=== PATIENT | female | born 1950 | race Two or more races ===

== ENCOUNTER 2022-09-30 01:41 | Emergency (ER) | payer MEDICARE, BC ==
[~2022-09-30] VITALS: Ht 162.6 cm; Wt 63.5 kg
--- NOTE | 2022-09-30 01:59 | NUR ---
[id number] FR HOME W/ CC OF RT SCAPULAR PAIN RAD TO CHEST. HX HIGH CHOLESTEROL, OVARIAN CA (LAST CHEMO 4 WEEKS AGO). PT PLACED IN BED, VITALS CHECKED.
[2022-09-30] MEDS ORDERED: NITROGLYCERIN 0.4 MG/TAB BOTTLE SL ONE (02:30)
[2022-09-30] MEDS ORDERED: NITROGLYCERIN PACKET 1 GM PACKET TD ONE (02:30)
[2022-09-30] MEDS ORDERED: ASPIRIN 81 MG TAB.CHEW PO ONE (02:30)
--- NOTE | 2022-09-30 02:35 | NUR ---
20GA TO LEFT WRIST ESTABLISHED; BLOOD WORK COLLECTED AND GIVEN TO ASSISTANT TECHNICIAN AT BEDSIDE
[2022-09-30 02:47] LABS: BASOPHILS % (AUTO) 0.9 % (0.0-2.0); EOSINOPHILS % (AUTO) 1.1 % (0.0-6.0); HEMATOCRIT 29 % (33-45); HEMOGLOBIN 9.8 g/dL (11.5-14.8); LYMPHOCYTES # (AUTO) 1.7 K/uL (0.8-4.8); LYMPHOCYTES % (AUTO) 45.2 % (20.0-44.0); MEAN CORPUSCULAR HGB CONC 34 g/dl (31.0-36.0); MEAN CORPUSCULAR VOLUME 95 fL (82-100); MONOCYTES # (AUTO) 0.5 K/uL (0.1-1.30); MONOCYTES % (AUTO) 13.4 % (2.0-12.0); NEUTROPHILS # (AUTO) 1.5 K/uL (1.8-8.9); NEUTROPHILS % (AUTO) 39.4 % (43.0-81.0); PLATELET COUNT (AUTO) 191 K/uL (150-450); RED BLOOD CELL COUNT(AUTO) 3.06 MIL/uL (4.0-5.2); WHITE BLOOD COUNT (AUTO) 3.8 K/uL (4.3-11.0)
[2022-09-30] MEDS ORDERED: NITROGLYCERIN PACKET 1 GM PACKET ONE (02:48)
[2022-09-30] MEDS ORDERED: NITROGLYCERIN 0.4 MG/TAB BOTTLE ONE (02:48)
[2022-09-30] MEDS ORDERED: ASPIRIN 81 MG TAB.CHEW ONE (02:49)
--- NOTE | 2022-09-30 02:55 | NUR ---
PT REFUSED NITRO PASTE AND NITRO SL. PT DID TAKE ASA 162MG. STATED SHE WOULD LIKE TO LEAVE SHE FEELS BETTER NOW. WILL LET MD AWARE.
[2022-09-30 02:56] LABS: CALCIUM, SERUM 9.2 mg/dL (8.5-10.1); CARBON DIOXIDE 29 mmol/L (21-32); CHLORIDE 105 mmol/L (98-107); CREATININE 0.6 mg/dL (0.6-1.3); GLUCOSE 102 mg/dL (74-106); POTASSIUM 3.9 mmol/L (3.5-5.1); SODIUM SERUM 139 mmol/L (136-145); UREA NITROGEN, BLOOD 23 mg/dL (7-18)
[2022-09-30 02:59] LABS: D-DIMER 0.71 mg/L(FEU (0.17-0.50)
[2022-09-30 03:10] LABS: ALANINE AMINOTRANSFERASE 22 U/L (12-78); ALBUMIN 3.4 g/dL (3.4-5.0); ALKALINE PHOSPHATASE 80 U/L (46-116); ASPARTATE AMINOTRANSFERASE 17 U/L (15-37); BILIRUBIN,DIRECT 0.1 mg/dL (0.0-0.2); BILIRUBIN,TOTAL 0.3 mg/dL (0.2-1.0); TOTAL PROTEIN, SERUM 6.4 g/dL (6.4-8.2)
[2022-09-30] MEDS ORDERED: IOHEXOL-350 100 ML VIAL IV ONE (03:14)
[2022-09-30] MEDS ORDERED: CT SWABBABLE VALVE TRANS SET 1 EA INFUS.SET MC ONE (03:15)
[2022-09-30] MEDS ORDERED: IV NS 0.9% 250 ML IV ONE (03:15)
--- NOTE | 2022-09-30 03:16 | NUR ---
XR AT BEDSIDE
--- NOTE | 2022-09-30 05:45 | NUR ---
Patient discharged to home in stable condition. Written and verbal after care instructions given. Patient verbalizes understanding of instruction. IV removed. Catheter intact and site benign. Pressure and 4x4 applied to site. No bleeding noted.
[2022-09-30 06:12] VITALS: BP 109/81
== END 2022-09-30 06:13 | disposition home or self-care (01) ==
LOC: ER 01:42
DX: M25.511 Pain in right shoulder (principal); R07.89 Other chest pain; Z88.0 Allergy status to penicillin; Z88.1 Allergy status to other antibiotic agents
CPT/HCPCS: 99285; 71045; 93005; 85025; 80048; 80076; 85378; 36415; 84484 ×2; 85730; 83880; J7050; Q9967